=== PATIENT | male | born 1985 | race African-American/Black ===

== ENCOUNTER 2018-01-15 09:37 | Emergency (ER) | payer SELFPAY ==
[2018-01-15] MEDS ORDERED: ACETAMINOPHEN 500 MG TAB ONE (10:39)
[2018-01-15] MEDS ORDERED: KETOROLAC 30 MG/ML INJ ONE (10:39)
[2018-01-15] MEDS ORDERED: LIDOCAINE VISCOUS 2% SOLN 15 ML UDC ONE (10:40)
[2018-01-15] MEDS ORDERED: BUPIVACAINE 0.5% PF 10 ML VIAL ONE (12:02)
[2018-01-15] MEDS ORDERED: PROPOFOL 200 MG/20 ML VIAL IV ONE (12:14)
[2018-01-15 12:17] LABS: Urine Bacteria <20 /HPF (NONE SEEN); Urine RBC <5 /HPF (NONE SEEN)
[2018-01-15 12:18] LABS: Urine Culture Reflex Order REFLEXED
[2018-01-15] MEDS ORDERED: AZITHROMYCIN 250 MG TAB ONE (12:25)
[2018-01-15] MEDS ORDERED: CEFTRIAXONE/SWI 1gm 1 GM/10 ML SYR ONE (12:26)
[2018-01-15] MEDS ORDERED: NA CHLORIDE 0.9% 1,000 ML ONE (13:04)
[2018-01-15 13:10] LABS: Urine Blood TRACE (NEG); Urine Glucose NEGATIVE (NEG); Urine Protein NEGATIVE (NEG)
--- NOTE | 2018-01-15 13:54 | EDPHYS ---
Physician Documentation [facility] Name: Martinez Petty Age: 32 yrs Sex: Male : 1985 Arrival Date: 01/15/2018 Time: 09:45 Bed 3 Private MD: ED Physician Kurt Joshi HPI: 01/15 11:21 This 32 yrs old Black Male presents to ER via EMS with complaints of Penile Discharge. wa 11:21 The patient presents with a known STD exposure, with a history of engaging in sex with wa a single partner, swelling, of the head of penis, tenderness, of the head of penis, c/o cuts and bleeding of head of penis. inability to replace foreskin after having intercourse. began at 4 AM. Onset: The symptoms/episode began/occurred this morning. Modifying factors: The symptoms are alleviated by nothing, the symptoms are aggravated by touch and urination. Associated signs and symptoms: Pertinent negatives: abdominal pain, dysuria, fever, hematuria, nausea, vomiting. Severity of symptoms: At their worst the symptoms were moderate, in the emergency department the symptoms are unchanged. The patient has not experienced similar symptoms in the past. The patient has not recently seen a physician. none. Historical: - Allergies: 09:48 No Known Allergies; aa5 - Home Meds: 09:48 Enalapril Oral [Active]; Hydrochlorothiazide Oral [Active]; aa5 - PMHx: 09:48 Hypertension; aa5 - PSHx: 09:48 None; aa5 - Immunization history:: Adult Immunizations up to date. - Social history:: Smoking status: Patient uses tobacco products, denies chronic smoking, but will smoke occasionally. - Ebola Screening: : No symptoms or risks identified at this time. - Family history:: not pertinent. - Hospitalizations: : No recent hospitalization is reported. ROS: 11:23 Constitutional: Negative for fever, chills, and weight loss, Eyes: Negative for injury, wa pain, redness, and discharge, ENT: Negative for injury, pain, and discharge, Neck: Negative for injury, pain, and swelling, Cardiovascular: Negative for chest pain, palpitations, and edema, Respiratory: Negative for shortness of breath, cough, wheezing, and pleuritic chest pain, Abdomen/GI: Negative for abdominal pain, nausea, vomiting, diarrhea, and constipation, Back: Negative for injury and pain, MS/Extremity: Negative for injury and deformity, Skin: Negative for injury, rash, and discoloration, Neuro: Negative for headache, weakness, numbness, tingling, and seizure, Psych: Negative for depression, anxiety, suicide ideation, homicidal ideation, and hallucinations. 11:23 : Positive for penile discharge, penile pain, lesions. 11:23 All other systems are negative. Exam: 11:24 Constitutional: This is a well developed, well nourished patient who is awake, alert, wa and in no acute distress. Head/Face: Normocephalic, atraumatic. Eyes: Pupils equal round and reactive to light, extra-ocular motions intact. Lids and lashes normal. Conjunctiva and sclera are non-icteric and not injected. Cornea within normal limits. Periorbital areas with no swelling, redness, or edema. ENT: Nares patent. No nasal discharge, no septal abnormalities noted. Tympanic membranes are normal and external auditory canals are clear. Oropharynx with no redness, swelling, or masses, exudates, or evidence of obstruction, uvula midline. Mucous membranes moist. Neck: Trachea midline, no thyromegaly or masses palpated, and no cervical lymphadenopathy. Supple, full range of motion without nuchal rigidity, or vertebral point tenderness. No Meningismus. Chest/axilla: Normal chest wall appearance and motion. Nontender with no deformity. No lesions are appreciated. Cardiovascular: Regular rate and rhythm with a normal S1 and S2. No gallops, murmurs, or rubs. Normal PMI, no JVD. No pulse deficits. Respiratory: Lungs have equal breath sounds bilaterally, clear to auscultation and percussion. No rales, rhonchi or wheezes noted. No increased work of breathing, no retractions or nasal flaring. Abdomen/GI: Soft, non-tender, with normal bowel sounds. No distension or tympany. No guarding or rebound. No evidence of tenderness throughout. Back: No spinal tenderness. No costovertebral tenderness. Full range of motion. Skin: Warm, dry with normal turgor. Normal color with no rashes, no lesions, and no evidence of cellulitis. MS/ Extremity: Pulses equal, no cyanosis. Neurovascular intact. Full, normal range of motion. Neuro: Awake and alert, GCS 15, oriented to person, place, time, and situation. Cranial nerves II-XII grossly intact. Motor strength 5/5 in all extremities. Sensory grossly intact. Cerebellar exam normal. Normal gait. Psych: Awake, alert, with orientation to person, place and time. Behavior, mood, and affect are within normal limits. 11:24 : Male external genitalia: swelling: of the head of penis is noted, tenderness, ulceration, of the head of penis is present, noted erythema on head of penis. noted canker sore in groove. foreskin noted back. inability to replace. Vital Signs: 09:48 BP 134 / 96; Pulse 73; Resp 16 S; Temp 98.9(O); Pulse Ox 95% on R/A; Weight 99.79 kg aa5 (R); Height 6 ft. 3 in. (190.50 cm) (R); Pain 9/10; 11:33 BP 138 / 70; Pulse 59; Resp 16; Pulse Ox 100% on R/A; Pain 3/10; em 09:48 Body Mass Index 27.50 (99.79 kg, 190.50 cm) aa5 Procedures: 13:48 Moderate sedation: Pre-procedure assessment: the patient has been NPO 6 hour(s) prior wa to arrival, ASA physical classification: I - healthy, no underlying organic disease, Airway assessment: able to hyperextend neck, able to maintain airway, can open mouth without difficulty, Mallampati classification of tongue size: II - faucial pillars and soft palate can be visualized, but uvula is masked by the base of the tongue, Monitoring during procedure: bus driver/monitor, continuous pulse oximetry, nurse at bedside at all times, Medications employed: propofol bolus. high flow O2 pre-ox, 15 min prior to procedure, Post-procedure assessment: the patient is moderately sedated, Respiratory status: even and unlabored. Performed paraphimosis reduction: cleaned penile head with betadine. dorsal nerve block performed with bupivacaine. paraphimosis reduced with direct pressure. reduction achieved in about 2-3 minutes. no complications. MDM: 10:00 Patient medically screened. wa 11:26 Differential diagnosis: noted canker sore. consider syphilis, chancroid. consider wa GC/chlam. consider UTI. noted paraphimosis. will need replacement. consider topical anesthesia vs penile block. Data reviewed: vital signs, nurses notes. 13:56 Test interpretation: by ED physician or midlevel provider: UA noted for 5-10 wbc's with wa noted epithelial cells. RPR pending. Lab says has a 24 hour turn around time. Response to treatment: the patient's symptoms have markedly improved after treatment. 01/15 10:27 Order name: GC (GONORR/CHLAMYDIA) Probe nj 01/15 10:27 Order name: Urine Microscopic Only; Complete Time: 13:14 nj 01/15 10:30 Order name: Rpr nj 01/15 11:56 Order name: Urine Dipstick--Ancillary (enter results) 01/15 11:57 Order name: Urine Dipstick-Ancillary; Complete Time: 13:14 EDUT 01/15 12:19 Order name: Urine Culture [facility] 01/15 10:27 Order name: Urine Dipstick-Ancillary (obtain specimen); Complete Time: 12:26 nj 01/15 10:27 Order name: IV Start; Complete Time: 11:06 nj 01/15 12:05 Order name: Monitor; Complete Time: 12:11 nj 01/15 12:05 Order name: Oxygen Per Protocol; Complete Time: 12:25 nj Administered Medications: 11:15 Drug: Tylenol 1000 mg Route: PO; em 11:43 Follow up: Response: No adverse reaction; Pain is decreased em 11:29 Drug: TORadol 30 mg Route: IVP; Site: right antecubital; aa5 11:43 Follow up: Response: No adverse reaction; Pain is decreased em 11:55 CANCELLED (Physician Discretion): Bupivacaine-Epinephrine (0.5 %) 5 ml Infiltration nj once; to bedside 12:25 Drug: Rocephin - (cefTRIAXone) 1 grams {Note: administered IVP per pharmacy protocol at aa this time. .} Route: IVPB; Infused Over: 30 mins; Site: right antecubital; 12:27 Drug: Zithromax 1 grams Route: PO; aa5 14:00 Follow up: Response: No adverse reaction [facility] 12:58 Drug: Propofol 200 mg {Note: administered by Dr. Joshi during conscious sedation .} 5 Route: IVP; Site: right antecubital; 13:10 Follow up: Response: No adverse reaction [facility] 13:00 Drug: Bupivacaine-Epinephrine (0.5 %) 5 ml {Note: administered to penis by Dr. Adi wing during conscious sedation.} Route: Infiltration; 13:23 Not Given (Physician Discretion): Propofol 110 mg IVP once; to bedside for procedural aa5 sedation. 2 syringes of 110 mg 13:57 Drug: penicillin G Benzathine 2.4 million units Route: IM; Site: right gluteus; aa5 14:14 Follow up: Response: No adverse reaction aa5 Disposition: 01/15/18 13:54 Discharged to Home. Impression: Acute Paraphimosis, Penile discharge, Penile Ulcer, STI. - Condition is Stable. - Discharge Instructions: Sexually Transmitted Disease, [id number], Paraphimosis. - Work release form, Medication Reconciliation Form, Thank You Letter, Antibiotic Education, Prescription Opioid Use form. - Follow up: Adelita Presley MD; When: 2 - 3 days; Reason: Re-evaluation by your physician. - Problem is new. - Symptoms have improved. - Notes: you need to use condoms when having intercourse. follow up with the urologist as discussed for the foreskin of your penis to be examined. your sexual partners need checked for sexually trransmitted diseases Signatures: Dispatcher [employer] EDCelestine Escobedo, NAZ SANTANAN Kelly Glynn RN RN Kurt Abreu MD MD nj Corrections: (The following items were deleted from the chart) 11:55 11:54 Bupivacaine-Epinephrine (0.5 %) 5 ml Infiltration once; to bedside ordered. [facility] 14:14 13:54 01/15/2018 13:54 Discharged to Home. Impression: Acute Paraphimosis; Penile aa5 discharge; Penile Ulcer; STI. Condition is Stable. Forms are Medication Reconciliation Form, Thank You Letter, Antibiotic Education, Prescription Opioid Use. Follow up: Adelita Presley; When: 2 - 3 days; Reason: Re-evaluation by your physician. Problem is new. Symptoms have improved. margaret
--- NOTE | 2018-01-15 13:54 | ER ---
Nurse's Notes [facility] Name: Martinez Petty Age: 32 yrs Sex: Male : 1985 Arrival Date: 01/15/2018 Time: 09:45 Bed 3 Private MD: Diagnosis: Acute Paraphimosis;Penile discharge;Penile Ulcer;STI Presentation: 01/15 09:46 Presenting complaint: Patient states: penile bleeding and discharge that began today at aa5 0400. Pt denies burning with urination. Reports difficulty urinating. Transition of care: patient was not received from another setting of care. Onset of symptoms was January 15, 2018. Risk Assessment: Do you want to hurt yourself or someone else? Patient reports no desire to harm self or others. Initial Sepsis Screen: Does the patient meet any 2 criteria? No. Patient's initial sepsis screen is negative. Does the patient have a suspected source of infection? No. Patient's initial sepsis screen is negative. Care prior to arrival: None. 09:46 Method Of Arrival: EMS: [facility] aa5 09:46 Acuity: YESSICA 4 aa5 Historical: - Allergies: 09:48 No Known Allergies; aa5 - Home Meds: 09:48 Enalapril Oral [Active]; Hydrochlorothiazide Oral [Active]; aa5 - PMHx: 09:48 Hypertension; aa5 - PSHx: 09:48 None; aa5 - Immunization history:: Adult Immunizations up to date. - Social history:: Smoking status: Patient uses tobacco products, denies chronic smoking, but will smoke occasionally. - Ebola Screening: : No symptoms or risks identified at this time. - Family history:: not pertinent. - Hospitalizations: : No recent hospitalization is reported. Screenin:04 Abuse screen: Denies threats or abuse. Nutritional screening: No deficits noted. em Tuberculosis screening: No symptoms or risk factors identified. Fall Risk None identified. Assessment: 10:00 General: Appears in no apparent distress. uncomfortable, Behavior is calm, cooperative. em Pain: Complains of pain in head of penis and shaft of penis Pain currently is 9 out of 10 on a pain scale. Pain began 0400. Neuro: Level of Consciousness is awake, alert, obeys commands, Oriented to person, place, time, situation. Cardiovascular: Capillary refill < 3 seconds Patient's skin is warm and dry. Respiratory: Airway is patent Respiratory effort is even, unlabored, Respiratory pattern is regular, symmetrical. GI: Abdomen is flat. : Penile discharge is Blood noted on penis Reports penile discharge. Reports difficulty urinating Denies burning with urination, inability to void. EENT: No signs and/or symptoms were reported regarding the EENT system. Derm: Skin is intact, Skin is dry, Skin is normal, Skin temperature is warm. Musculoskeletal: Range of motion: intact in all extremities. 10:00 Reassessment: I agree with assessment completed by Celestine Cooney LVN. Foreskin aa5 retracted, mild bleeding noted to glans penis. Swelling noted to glans penis. . 11:19 Reassessment: Patient appears in no apparent distress at this time. Patient and/or em family updated on plan of care and expected duration. Pain level reassessed. Patient is alert, oriented x 3, equal unlabored respirations, skin warm/dry/pink. 12:10 Reassessment: Patient appears in no apparent distress at this time. Patient and/or em family updated on plan of care and expected duration. Pain level reassessed. Patient is alert, oriented x 3, equal unlabored respirations, skin warm/dry/pink. pt unable to tolerate penile block, consent form signed for conscious sedation. 13:15 Reassessment: Pt with eyes closed. Pt easy to arouse by verbal stimuli, A\T\ O x 4 at aa5 this time. Respirations even and unlabored, skin is normal/warm/dry. . 13:30 Reassessment: Pt sitting up in bed using his phone. . Neuro: Level of Consciousness is aa5 awake, alert, obeys commands, Oriented to person, place, time, situation. Cardiovascular: Rhythm is sinus rhythm. Respiratory: Airway is patent Respiratory effort is even, unlabored, Respiratory pattern is regular, symmetrical. Derm: Skin is dry, Skin is normal, Skin temperature is warm. 14:12 Neuro: Level of Consciousness is awake, alert, obeys commands, Oriented to person, aa5 place, time, situation. Respiratory: Airway is patent Respiratory effort is even, unlabored, Respiratory pattern is regular, symmetrical. Derm: Skin is dry, Skin is normal, Skin temperature is warm. Vital Signs: 09:48 BP 134 / 96; Pulse 73; Resp 16 S; Temp 98.9(O); Pulse Ox 95% on R/A; Weight 99.79 kg aa5 (R); Height 6 ft. 3 in. (190.50 cm) (R); Pain 9/10; 11:33 BP 138 / 70; Pulse 59; Resp 16; Pulse Ox 100% on R/A; Pain 3/10; em 09:48 Body Mass Index 27.50 (99.79 kg, 190.50 cm) [facility] ED Course: 09:45 Patient arrived in ED. aa5 09:46 Arm band placed on. aa5 09:47 Triage completed. aa5 09:51 Celestine Cooney LVN is Primary Nurse. em 10:00 Kurt Joshi MD is Attending Physician. wa 10:04 Patient has correct armband on for positive identification. Placed in gown. Bed in low em position. Call light in reach. 11:05 Initial lab(s) drawn, by dc, sent to lab. Inserted saline lock: 20 gauge in right [facility] antecubital area, using aseptic technique. Blood collected. 11:06 Rpr Sent. [facility] 12:58 Assist with conscious sedation, reduction of glans penis by manipulation by Dr. Joshi [facility] and LEROY Ramos. See conscious sedation flow sheet for further documentation. 13:52 Adelita Presley MD is Referral Physician. ar 14:12 IV discontinued, intact, bleeding controlled, No redness/swelling at site. Pressure [facility] dressing applied. Administered Medications: 11:15 Drug: Tylenol 1000 mg Route: PO; em 11:43 Follow up: Response: No adverse reaction; Pain is decreased em 11:29 Drug: TORadol 30 mg Route: IVP; Site: right antecubital; [facility] 11:43 Follow up: Response: No adverse reaction; Pain is decreased em 11:55 CANCELLED (Physician Discretion): Bupivacaine-Epinephrine (0.5 %) 5 ml Infiltration ar once; to bedside 12:25 Drug: Rocephin - (cefTRIAXone) 1 grams {Note: administered IVP per pharmacy protocol at [facility] this time. .} Route: IVPB; Infused Over: 30 mins; Site: right antecubital; 12:27 Drug: Zithromax 1 grams Route: PO; [facility] 14:00 Follow up: Response: No adverse reaction aa5 12:58 Drug: Propofol 200 mg {Note: administered by Dr. Joshi during conscious sedation .} aa5 Route: IVP; Site: right antecubital; 13:10 Follow up: Response: No adverse reaction aa5 13:00 Drug: Bupivacaine-Epinephrine (0.5 %) 5 ml {Note: administered to penis by Dr. Joshi aa5 during conscious sedation.} Route: Infiltration; 13:23 Not Given (Physician Discretion): Propofol 110 mg IVP once; to bedside for procedural aa5 sedation. 2 syringes of 110 mg 13:57 Drug: penicillin G Benzathine 2.4 million units Route: IM; Site: right gluteus; aa5 14:14 Follow up: Response: No adverse reaction aa5 Outcome: 13:54 Discharge ordered by . wa 14:12 Discharged to home ambulatory, with family. aa5 14:12 Condition: stable 14:12 Discharge instructions given to patient, Instructed on discharge instructions, follow up and referral plans. Demonstrated understanding of instructions, follow-up care. 14:14 Patient left the ED. aa5 Signatures: Celestine Cooney LVN LVN em Kelly Santacruz RN RN aa5 Myesha Woods 5 Kurt Joshi MD MD ar Corrections: (The following items were deleted from the chart) 11:44 10:00 : Penile discharge is Blood noted on penis Reports discharge, from penis that aa5 is inability to void, Denies burning with urination, em 13:37 13:15 Reassessment: Pt with eyes closed. Pt easy to arouse by verbal stimuli, A\T\ O x 4 aa5 at this time. Respirations even and unlabored, skin is normal/warm/dry. . aa5 13:40 10:00 Derm: Skin is intact, Skin is pink, warm \T\ dry. em aa5 13:40 10:00 Reassessment: I agree with assessment completed by Celestine Cooney LVN . aa5 aa5 14:00 12:25 Rocephin - (cefTRIAXone) 1 grams IVPB in right antecubital over 30 mins aa5 aa5
[2018-01-15] MEDS ORDERED: PEN G BENZ LA 2.4 MU/4 ML SYRINGE IM ONE (13:55)
[2018-01-17 04:07] LABS: RPR (Rapid Plasma Reagin) REACTIVE (NON-REACT)
[2018-01-18 21:03] LABS: C.trachomatis RNA,TMA Detected (Not Detected)
== END 2018-01-15 14:14 | disposition home or self-care (01) ==
LOC: ER 09:37
PROC: 0VNTXZZ Release Prepuce, External Approach (ICD-10-PCS; principal; 2018-01-15)
DX: N47.2 Paraphimosis (principal); N48.5 Ulcer of penis; A64 Unspecified sexually transmitted disease
CPT/HCPCS: 36415; 81003; 81015; 86592; 86593; 86780; 87086; 87088; 87490; 87590; 96372; 96374; 96375; 99285; J0561; J0696; J7030

== ENCOUNTER 2018-06-05 14:18 | Emergency (ER) | payer SELFPAY ==
--- OUTSIDE RECORDS SUMMARY | 2018-06-05 14:21 | XMS REPORT ---
:1985 [facility] [place] [address] [place] [id number] Care Team Providers Name Role Phone LINDA JALLOH Unavailable Unavailable Problems This patient has no known problems. Allergies, Adverse Reactions, Alerts This patient has no known allergies or adverse reactions. Medications This patient has no known medications. Results Test Description Test Time Test Comments Text Results Atomic Results Result Comments CREATINE KINASE (CK), TOTAL AND MB 2016-11-08 21:15:00 Test Item Value Reference Range Comments CREATINE KINASE TOTAL (BEAKER) (test pfrr=102) 158 U/L 29-200 CREATINE KINASE-MB (BEAKER) (test yrzy=901) 0.6 ng/mL 0.0-6.6 CREATINE KINASE-MB INDEX (BEAKER) (test gdzb=126) 0.4 % Effective 03/20/2014: CK-MB Reference Range ChangeNew: 0.0-6.6 Previous: 0.0- 4.9CK-MB Reference Range:<6.7 Normal6.7-10.0 Borderline>10.0 AbnormalTROPONIN [id number] 21:15:00 Test Item Value Reference Range Comments TROPONIN I (BEAKER) (test jdiw=439) < ng/mL 0.00-0.03 Effective 03/20/2014: Reference Range ChangeNew: 0.00-0.03 Previous 0.00- 0.15Troponin I (TnI) levels must be interpreted in the context of the presenting symptoms and the clinical findings. Elevated TnI levels indicate myocardial damage, but are not specific for ischemic heart disease. Elevated TnI levels are seen in patients with other cardiac conditions (including myocarditis and congestive heartfailure), and slight TnI elevations occur in patients with other conditions, including sepsis, renalfailure, acidosis, acute neurological disease, and persistent tachyarrhythmia.B-TYPE NATRIURETIC FACTOR ( BNP)2016-11-08 18:33:00 Test Item Value Reference Range Comments B-TYPE NATRIURETIC PEPTIDE (BEAKER) (test jlft=303) < pg/mL 0-100 CREATINE KINASE (CK), TOTAL AND [id number] 18:31:00 Test Item Value Reference Range Comments CREATINE KINASE TOTAL (BEAKER) (test rujz=028) 151 U/L 29-200 CREATINE KINASE-MB (BEAKER) (test hmmu=519) 0.7 ng/mL 0.0-6.6 CREATINE KINASE-MB INDEX (BEAKER) (test fqwq=711) 0.5 % Effective 03/20/2014: CK-MB Reference Range ChangeNew: 0.0-6.6 Previous: 0.0- 4.9CK-MB Reference Range:<6.7 Normal6.7-10.0 Borderline>10.0 AbnormalTROPONIN [id number] 18:31:00 Test Item Value Reference Range Comments TROPONIN I (BEAKER) (test xeay=284) < ng/mL 0.00-0.03 Effective 03/20/2014: Reference Range ChangeNew: 0.00-0.03 Previous 0.00- 0.15Troponin I (TnI) levels must be interpreted in the context of the presenting symptoms and the clinical findings. Elevated TnI levels indicate myocardial damage, but are not specific for ischemic heart disease. Elevated TnI levels are seen in patients with other cardiac conditions (including myocarditis and congestive heartfailure), and slight TnI elevations occur in patients with other conditions, including sepsis, renalfailure, acidosis, acute neurological disease, and persistent tachyarrhythmia.COMPREHENSIVE METABOLIC [id number] 18:27:00 Test Item Value Reference Range Comments TOTAL PROTEIN (BEAKER) 7.1 gm/dL 6.0-8.3 (test llxh=445) ALBUMIN (BEAKER) (test 4.0 g/dL 3.5-5.0 anjh=7291) ALKALINE PHOSPHATASE 45 U/L 40-150 (BEAKER) (test slng=732) BILIRUBIN TOTAL (BEAKER) 0.9 mg/dL 0.2-1.2 (test spxp=155) SODIUM (BEAKER) (test 141 meq/L 136-145 jtyj=960) POTASSIUM (BEAKER) (test 4.1 meq/L 3.5-5.1 cgwp=249) CHLORIDE (BEAKER) (test 106 meq/L 98-107 tbwo=201) CO2 (BEAKER) (test 25 meq/L 22-29 dlgv=495) BLOOD UREA NITROGEN 10 mg/dL 7-21 (BEAKER) (test yykr=355) CREATININE (BEAKER) (test 1.31 mg/dL 0.57-1.25 ydym=438) GLUCOSE RANDOM (BEAKER) 87 mg/dL 70-105 (test aeis=902) CALCIUM (BEAKER) (test 9.4 mg/dL 8.4-10.2 ppdo=887) AST (SGOT) (BEAKER) (test 17 U/L 5-34 cavw=518) ALT (SGPT) (BEAKER) (test 7 U/L 6-55 fenm=610) EGFR (BEAKER) (test mL/min/1.73 sq m INSUFFICIENT CLINICAL DATA uhbn=6816) TO CALCULATE ESTIMATED GFR. [id number] 18:24:00 Test Item Value Reference Range Comments MAGNESIUM (BEAKER) (test mrbo=176) 1.9 mg/dL 1.6-2.6 [id number] 18:16:00 Test Item Value Reference Range Comments PROTIME (BEAKER) (test miow=640) 13.8 seconds 11.7-14.7 INR (BEAKER) (test uyag=777) 1.1 <=5.9 PARTIAL THROMBOPLASTIN TIME (BEAKER) (test 28.6 seconds 22.5-36.0 aqqd=487) RECOMMENDED COUMADIN/WARFARIN INR THERAPY RANGESSTANDARD DOSE: 2.0 - 3.0 Includes: PROPHYLAXIS forvenous thrombosis, systemic embolization; TREATMENT for venous thrombosis and/or pulmonary embolus.HIGH RISK: Target INR is 2.5-3.5 for patients with mechanical heart valves.CBC W/PLT COUNT & AUTO [id number] 18:07:00 Test Item Value Reference Range Comments WHITE BLOOD CELL COUNT (BEAKER) (test bgtu=875) 4.7 K/ L 4.0-10.0 RED BLOOD CELL COUNT (BEAKER) (test uqzp=623) 5.23 M/ L 4.20-5.80 HEMOGLOBIN (BEAKER) (test muwr=380) 15.6 GM/DL 13.0-16.8 HEMATOCRIT (BEAKER) (test iymj=695) 47.4 % 40.0-50.0 MEAN CORPUSCULAR VOLUME (BEAKER) (test dmdu=090) 90.5 fL 82.0-98.0 MEAN CORPUSCULAR HEMOGLOBIN (BEAKER) (test 29.9 pg 27.0-33.0 lxsn=777) MEAN CORPUSCULAR HEMOGLOBIN CONC (BEAKER) (test 33.0 GM/DL 32.0-36.0 hovo=554) RED CELL DISTRIBUTION WIDTH (BEAKER) (test 12.5 % 10.3-14.2 xesm=381) PLATELET COUNT (BEAKER) (test lriv=855) 280 K/CU MM 150-430 MEAN PLATELET VOLUME (BEAKER) (test jytr=502) 6.6 fL 6.5-10.5 NUCLEATED RED BLOOD CELLS (BEAKER) (test 0 /100 WBC 0-0 dlja=550) NEUTROPHILS RELATIVE PERCENT (BEAKER) (test 62 % xnkk=592) LYMPHOCYTES RELATIVE PERCENT (BEAKER) (test 29 % frnd=712) MONOCYTES RELATIVE PERCENT (BEAKER) (test 5 % qbfx=381) EOSINOPHILS RELATIVE PERCENT (BEAKER) (test 3 % llxu=307) BASOPHILS RELATIVE PERCENT (BEAKER) (test 1 % ehpx=138) NEUTROPHILS ABSOLUTE COUNT (BEAKER) (test 2.90 K/ L 1.80-8.00 evwp=569) LYMPHOCYTES ABSOLUTE COUNT (BEAKER) (test 1.38 K/ L 1.48-4.50 infs=577) MONOCYTES ABSOLUTE COUNT (BEAKER) (test 0.23 K/ L 0.00-1.30 iccc=102) EOSINOPHILS ABSOLUTE COUNT (BEAKER) (test 0.15 K/ L 0.00-0.50 uecg=900) BASOPHILS ABSOLUTE COUNT (BEAKER) (test 0.05 K/ L 0.00-0.20 hpxv=403) 0.00
--- OUTSIDE RECORDS SUMMARY | 2018-06-05 14:21 | XMS REPORT | Clinical Summary ---
:1985 Author Organization [facility] Address [address] [place] [address] Care Team Providers Name Role Phone Gerardo Primary Care Provider Allergies No Known Allergies Medications Not on file Active Problems Not on file Social History Tobacco Use Types Packs/Day Years Used Date Current Some Day Smoker Cigarettes Alcohol Use Drinks/Week oz/Week Comments Yes rarely Sex Assigned at Date Recorded Not on file Job Start Date Occupation Industry Not on file Not on file Not on file Travel History Travel Start Travel End No recent travel history available. Last Filed Vital Signs Not on file Plan of Treatment Not on file Results Not on fileafter 06/04/2017
[2018-06-05] MEDS ORDERED: ONDANSETRON 4 MG/2 ML VIAL ONE (15:43)
[2018-06-05] MEDS ORDERED: PANTOPRAZOLE 40 MG INJ ONE (15:43)
[2018-06-05] MEDS ORDERED: NA CHLORIDE 0.9% 1,000 ML ONE (15:44)
[2018-06-05 16:08] LABS: Absolute Monocytes 0.3 K/uL (0.1-1.3); Basophils % 0.2 % (0-1.3); Eosinophils % 0.4 % (0-4.4); Hematocrit 42.9 % (39.6-49.0); MPV 8.5 fL (7.6-11.3); Monocytes % 4.8 % (3.3-12.3); RBC Red Blood Cell Count 4.88 M/uL (4.33-5.43)
[2018-06-05 16:40] LABS: Bilirubin Direct 0.2 mg/dL (0-0.2); Bilirubin Total 0.5 mg/dL (0.2-1.0); Magnesium 2.3 mg/dL (1.8-2.4); Potassium 4.2 mmol/L (3.5-5.1); Protein, Total 7.7 g/dL (6.4-8.2)
--- NOTE | 2018-06-05 17:45 | ER ---
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 Transition of care: patient was not received from another setting of care. Onset of symptoms was June 05, 2018 at 11:00. Risk Assessment: Do you want to hurt yourself or someone else? Patient reports no desire to harm self or others. Initial Sepsis Screen: Does the patient meet any 2 criteria? No. Patient's initial sepsis screen is negative. Does the patient have a suspected source of infection? No. Patient's initial sepsis screen is negative. Care prior to arrival: Medication(s) given: Phenergan, 12.5 mg. 14:29 Method Of Arrival: EMS: [facility] em 14:40 Acuity: YESSICA 3 iw Triage Assessment: 14:32 General: Appears in no apparent distress. comfortable, Behavior is calm, cooperative, em drowsy. Pain: Complains of pain in umbilical area Pain currently is 6 out of 10 on a pain scale. Neuro: Level of Consciousness is awake, alert, obeys commands, Oriented to person, place, time, situation. Historical: - Allergies: 14:32 No Known Allergies; em - PMHx: 14:32 Hypertension; em - PSHx: 14:32 None; em - Immunization history:: Adult Immunizations up to date. - Social history:: Smoking status: Patient uses tobacco products, smokes one-half pack cigarettes per day. - Ebola Screening: : Patient negative for fever greater than or equal to 101.5 degrees Fahrenheit, and additional compatible Ebola Virus Disease symptoms Patient denies exposure to infectious person Patient denies travel to an Ebola-affected area in the 21 days before illness onset No symptoms or risks identified at this time. Screenin:34 Abuse screen: Denies threats or abuse. Nutritional screening: No deficits noted. em Tuberculosis screening: No symptoms or risk factors identified. Fall Risk None identified. Assessment: 14:34 General: Appears in no apparent distress. comfortable, Behavior is cooperative, drowsy. em Pain: Complains of pain in abdomen Pain currently is 6 out of 10 on a pain scale. Pain began 4 hours ago. Neuro: Level of Consciousness is awake, alert, obeys commands, Oriented to person, place, time, situation. Cardiovascular: Patient's skin is warm and dry. Respiratory: Airway is patent Respiratory effort is even, unlabored, Respiratory pattern is regular, symmetrical. GI: Abdomen is flat, Bowel sounds present X 4 quads. Abd is soft and non tender X 4 quads. Reports nausea, vomiting. Derm: Skin is intact, is healthy with good turgor, Skin is pink, warm \T\ dry. Musculoskeletal: Range of motion: intact in all extremities. 15:00 Reassessment: Patient appears in no apparent distress at this time. i agree with above iw assessment by Celestine Cooney LVN. 15:30 Reassessment: Patient appears in no apparent distress at this time. Patient and/or em family updated on plan of care and expected duration. Pain level reassessed. Patient is alert, oriented x 3, equal unlabored respirations, skin warm/dry/pink. resting comfortably, pending lab results. 16:40 Reassessment: Patient appears in no apparent distress at this time. Patient and/or em family updated on plan of care and expected duration. Pain level reassessed. Patient is alert, oriented x 3, equal unlabored respirations, skin warm/dry/pink. pt eating hot cheetos in bed, instructed not to eat until diagnostic tests are complete Patient states feeling better. 18:28 Reassessment: Patient appears in no apparent distress at this time. Patient and/or em family updated on plan of care and expected duration. Pain level reassessed. Patient is alert, oriented x 3, equal unlabored respirations, skin warm/dry/pink. Patient denies pain at this time. Patient states feeling better. Patient states symptoms have improved. Vital Signs: 14:34 BP 159 / 105; Pulse 69; Resp 16; Temp 98.4(O); Pulse Ox 100% on R/A; Weight 97.52 kg; em Height 6 ft. 3 in. (190.50 cm); Pain 6/10; 15:51 BP 151 / 102; Pulse 64; Resp 18; Pulse Ox 99% on R/A; em 16:09 BP 122 / 75; Pulse 66; Resp 17; Pulse Ox 100% on R/A; mh5 17:00 BP 138 / 85; Pulse 68; Resp 18; Pulse Ox 100% on R/A; Pain 0/10; em 18:28 BP 131 / 87; Pulse 73; Resp 16; Temp 98.7(O); Pulse Ox 100% on R/A; Pain 0/10; em 14:34 Body Mass Index 26.87 (97.52 kg, 190.50 cm) em ED Course: 14:20 Patient arrived in ED. rg4 14:29 Celestine Cooney LVN is Primary Nurse. em 14:33 Maintain EMS IV. Dressing intact. Good blood return noted. Site clean \T\ dry. Gauge \T\ em site: 20 RAC. 14:34 Arm band placed on. em 14:34 Patient has correct armband on for positive identification. Bed in low position. Call em light in reach. Side rails up X2. Pulse ox on. NIBP on. 14:45 Dariel Quintero PA is PHCP. cp 14:45 Dariel Siddiqi MD is Attending Physician. cp 14:46 Triage completed. iw 15:26 Radiology exam delayed due to lab results not completed at this time. (BUN/Creatinine). mw3 17:40 XRAY Abdomen Acute Series In Process Unspecified. EDMS 18:27 No provider procedures requiring assistance completed. IV discontinued, intact, em bleeding controlled, No redness/swelling at site. Pressure dressing applied. Administered Medications: 15:40 Drug: Zofran 4 mg Route: IVP; Site: right antecubital; iw 16:59 Follow up: Response: No adverse reaction; Nausea is decreased em 15:40 Drug: ProTONIX 40 mg Route: IVP; Site: right antecubital; iw 16:59 Follow up: Response: No adverse reaction em 15:57 Drug: NS 0.9% 1000 ml Route: IV; Rate: 1 bolus; Site: right antecubital; iw 16:58 Follow up: IV Status: Completed infusion; IV Intake: 1000ml em Intake: 16:58 IV: 1000ml; Total: 1000ml. em Outcome: 17:45 Discharge ordered by . cp 18:27 Discharged to home ambulatory. em 18:27 Condition: good 18:27 Discharge instructions given to patient, Instructed on discharge instructions, follow up and referral plans. medication usage, Demonstrated understanding of instructions, follow-up care, medications, Prescriptions given X 2. 18:29 Patient left the ED. em Signatures: Dispatcher [employer] EDMS Celestine Cooney, [employer] em Ronda Gunderson RN RN Dariel Freedman PA PA Stephanie Newman 4 Myesha [facility] Snehal Geiger mw3 Corrections: (The following items were deleted from the chart) 15:26 15:26 Radiology exam delayed due to lab results not completed at this time. mw3 (BUN/Creatinine) IV insertion attempt and/or patient not having appropriate IV at this time. mw3
--- NOTE | 2018-06-05 17:45 | EDPHYS ---
Physician Documentation [facility] Name: Martinez Petty Age: 33 yrs Sex: Male : 1985 Arrival Date: 06/05/2018 Time: 14:20 Bed 20 Private MD: ED Physician Dariel Siddiqi HPI: 06/05 15:05 This 33 yrs old Black Male presents to ER via EMS with complaints of Abdominal Pain. cp 15:05 The patient presents with abdominal pain in the upper abdomen. Onset: The cp symptoms/episode began/occurred suddenly, today. The symptoms radiate to back. Associated signs and symptoms: Pertinent positives: nausea and vomiting. Severity of pain: in the emergency department the pain has improved mildly. Patient reports noticing blood in vomitus. Historical: - Allergies: 14:32 No Known Allergies; em - PMHx: 14:32 Hypertension; em - PSHx: 14:32 None; em - Immunization history:: Adult Immunizations up to date. - Social history:: Smoking status: Patient uses tobacco products, smokes one-half pack cigarettes per day. - Ebola Screening: : Patient negative for fever greater than or equal to 101.5 degrees Fahrenheit, and additional compatible Ebola Virus Disease symptoms Patient denies exposure to infectious person Patient denies travel to an Ebola-affected area in the 21 days before illness onset No symptoms or risks identified at this time. ROS: 15:10 Constitutional: Negative for body aches, chills, fever. cp 15:10 Eyes: Negative for injury, pain, redness, and discharge. cp 15:10 ENT: Negative for drainage from ear(s), ear pain, sore throat, difficulty swallowing, difficulty handling secretions. 15:10 Cardiovascular: Negative for chest pain, edema, palpitations. 15:10 Respiratory: Negative for cough, shortness of breath, wheezing. 15:10 Abdomen/GI: Positive for abdominal pain, nausea, vomiting, hematemesis, Negative for black/tarry stool, rectal bleeding. 15:10 Back: Negative for pain at rest, pain with movement, radiated pain. 15:10 : Negative for urinary symptoms, flank pain, testicular pain 15:10 Skin: Negative for cellulitis, rash. 15:10 Neuro: Negative for altered mental status, headache, weakness. 15:10 All other systems are negative. Exam: 15:15 Constitutional: The patient appears in no acute distress, alert, awake, cp non-diaphoretic, non-toxic, well developed, well nourished, uncomfortable. 15:15 Head/Face: Normocephalic, atraumatic. cp 15:15 Eyes: Periorbital structures: appear normal, Pupils: equal, round, and reactive to light and accomodation, Conjunctiva: normal, no exudate, no injection, Sclera: no appreciated abnormality, Lids and lashes: appear normal, bilaterally. 15:15 ENT: External ear(s): are unremarkable, Ear canal(s): are normal, clear, TM's: dullness, bilaterally, Nose: is normal, Mouth: Lips: moist, Oral mucosa: pink and intact, moist, Posterior pharynx: is normal, airway is patent, no erythema, no exudate, Voice: is normal. 15:15 Chest/axilla: Inspection: normal, Palpation: is normal, no crepitus, no tenderness. cp 15:15 Cardiovascular: Rate: normal, Rhythm: regular, JVD: is not appreciated. 15:15 Respiratory: the patient does not display signs of respiratory distress, Respirations: normal, no use of accessory muscles, no retractions, no splinting, no tachypnea, labored breathing, is not present, Breath sounds: are clear throughout, no decreased breath sounds, no stridor, no wheezing. 15:15 Abdomen/GI: Inspection: abdomen appears normal, Bowel sounds: active, all quadrants, Palpation: soft, in all quadrants, moderate abdominal tenderness, in the epigastric area, rebound tenderness, is not appreciated, involuntary guarding, is not appreciated. 15:15 Back: pain, is absent, ROM is normal. 15:15 Skin: cellulitis, is not appreciated, no rash present. 15:15 Neuro: Orientation: to person, place \T\ time. Mentation: is normal, Cerebellar function: is grossly normal, Motor: moves all fours, strength is normal, Sensation: is normal. Vital Signs: 14:34 BP 159 / 105; Pulse 69; Resp 16; Temp 98.4(O); Pulse Ox 100% on R/A; Weight 97.52 kg; em Height 6 ft. 3 in. (190.50 cm); Pain 6/10; 15:51 BP 151 / 102; Pulse 64; Resp 18; Pulse Ox 99% on R/A; em 16:09 BP 122 / 75; Pulse 66; Resp 17; Pulse Ox 100% on R/A; mh5 17:00 BP 138 / 85; Pulse 68; Resp 18; Pulse Ox 100% on R/A; Pain 0/10; em 18:28 BP 131 / 87; Pulse 73; Resp 16; Temp 98.7(O); Pulse Ox 100% on R/A; Pain 0/10; em 14:34 Body Mass Index 26.87 (97.52 kg, 190.50 cm) em MDM: 14:49 Patient medically screened. [facility] 17:45 Data reviewed: vital signs, nurses notes, lab test result(s), radiologic studies, plain cp films. 17:45 Counseling: I had a detailed discussion with the patient and/or guardian regarding: the cp historical points, exam findings, and any diagnostic results supporting the discharge/admit diagnosis, lab results, radiology results, to return to the emergency department if symptoms worsen or persist or if there are any questions or concerns that arise at home. Response to treatment: the patient's symptoms have markedly improved after treatment, Pain and nausea markedly improved. Vomiting resolved and patient requesting food, and as a result, I will discharge patient. 06/05 14:57 Order name: Basic Metabolic Panel; Complete Time: 16:44 cp 06/05 17:59 Interpretation: Normal except: CRE 1.32; GFR 77. cp 06/05 14:57 Order name: CBC with Diff; Complete Time: 16:44 cp 06/05 14:57 Order name: Creatinine for Radiology; Complete Time: 16:44 cp 06/05 14:57 Order name: Hepatic Function; Complete Time: 16:44 cp 06/05 14:57 Order name: Lipase; Complete Time: 16:44 cp 06/05 14:57 Order name: Magnesium; Complete Time: 16:44 cp 06/05 14:57 Order name: IV Saline Lock; Complete Time: 15:21 cp 06/05 14:57 Order name: Labs collected and sent; Complete Time: 18:22 cp 06/05 16:45 Order name: XRAY Abdomen Acute Series; Complete Time: 17:58 cp 06/05 16:48 Order name: Urine Dipstick--Ancillary (enter results) eb 06/05 14:57 Order name: Urine Dipstick-Ancillary (obtain specimen); Complete Time: 16:59 cp 06/05 17:44 Order name: PO challenge; Complete Time: 18:21 cp Administered Medications: 15:40 Drug: Zofran 4 mg Route: IVP; Site: right antecubital; iw 16:59 Follow up: Response: No adverse reaction; Nausea is decreased em 15:40 Drug: ProTONIX 40 mg Route: IVP; Site: right antecubital; iw 16:59 Follow up: Response: No adverse reaction em 15:57 Drug: NS 0.9% 1000 ml Route: IV; Rate: 1 bolus; Site: right antecubital; iw 16:58 Follow up: IV Status: Completed infusion; IV Intake: 1000ml em Disposition: 06/06 15:37 Co-signature as Attending Physician, Dariel Siddiqi MD I agree with the assessment and neil plan of care. Disposition: 06/05/18 17:45 Discharged to Home. Impression: Nausea and vomiting. - Condition is Stable. - Discharge Instructions: Nausea and Vomiting, Adult. - Prescriptions for Protonix 40 mg Oral Tablet, Delayed Release (E.C.) - take 1 tablet by ORAL route once daily for 7 days; 7 tablet. promethazine 25 mg Oral Tablet - take 1 tablet by ORAL route every 6 hours As needed; 20 tablet. - Medication Reconciliation Form, Thank You Letter, Antibiotic Education, Prescription Opioid Use form. - Follow up: Private Physician; When: 1 - 2 days; Reason: Recheck today's complaints. - Problem is new. - Symptoms have improved. Signatures: Dispatcher [employer] [facility] Dariel Siddiqi MD MD cha Munoz, Edgar, RN MOBILE RN MOBILE em Ronda Gunderson RN RN iw Page, Corey, PA PA cp Corrections: (The following items were deleted from the chart) 06/05 16:48 15:19 Abdomen Pelvis W Con+CT.RAD.BRZ ordered. [facility] 18:29 17:45 06/05/2018 17:45 Discharged to Home. Impression: Nausea and vomiting. Condition em is Stable. Forms are Medication Reconciliation Form, Thank You Letter, Antibiotic Education, Prescription Opioid Use. Follow up: Private Physician; When: 1 - 2 days; Reason: Recheck today's complaints. Problem is new. Symptoms have improved. cp
--- NOTE | 2018-06-05 17:54 | RAD REPORT ---
EXAM DESCRIPTION: RAD - Abdomen Acute Series - 06/05/2018 5:40 pm CLINICAL HISTORY: Vomiting, abdominal pain COMPARISON: None. FINDINGS: Lungs are clear. Heart size and vessels are normal. No pleural effusion, pneumothorax or o ther acute cardiopulmonary process seen. Bowel gas pattern is nonspecific. No bowel obstruction, free air or other acute findings. No suspicio us calcifications. Moderate stool is seen in the colon. No other suspicious for significant findings. IMPRESSION: Moderate stool in the colon.
[2018-06-05 20:35] LABS: Urine Blood NEGATIVE (NEG); Urine Glucose NEGATIVE (NEG); Urine Protein NEGATIVE (NEG); Urine pH 7.5 (5.0-7.0)
== END 2018-06-05 18:29 | disposition home or self-care (01) ==
LOC: ER 14:18
DX: R11.2 Nausea with vomiting, unspecified (principal); R10.9 Unspecified abdominal pain; F17.210 Nicotine dependence, cigarettes, uncomplicated
CPT/HCPCS: 36415; 74022; 80048; 80076; 81003; 83690; 83735; 85025; 96361; 96374; 96375; 99284; C9113; J2405; J7030

== ENCOUNTER 2018-07-13 12:39 | Emergency (ER) | payer SELFPAY ==
--- OUTSIDE RECORDS SUMMARY | 2018-07-13 12:44 | XMS REPORT | Clinical Summary ---
:1985 Author Organization [facility] Address [address] [place] [address] Care Team Providers Name Role Phone Gerardo [...] Not on file Results Not on fileafter 07/12/2017
--- OUTSIDE RECORDS SUMMARY | 2018-07-13 12:44 | XMS REPORT ---
:1985 Author Organization [facility] Address [facility] [place] [address] [place] [id number] Care Team Providers Name Role Phone LINDA [...] Range Comments CREATINE KINASE TOTAL (BEAKER) (test tytc=030) 158 U/L 29-200 CREATINE KINASE-MB (BEAKER) (test llew=016) 0.6 ng/mL 0.0-6.6 CREATINE KINASE-MB INDEX (BEAKER) (test yddf=446) 0.4 % Effective 03/20/2014: CK-MB Reference Range ChangeNew: 0.0-6.6 Previous: 0.0- 4.9CK-MB Reference Range:<6.7 Normal6.7-10.0 Borderline>10.0 AbnormalTROPONIN [id number] 21:15:00 Test Item Value Reference Range Comments TROPONIN I (BEAKER) (test itvm=407) < ng/mL 0.00-0.03 Effective 03/20/2014: Reference Range [...] Range Comments B-TYPE NATRIURETIC PEPTIDE (BEAKER) (test hrbt=799) < pg/mL 0-100 CREATINE KINASE (CK), TOTAL AND [id number] 18:31:00 Test Item Value Reference Range Comments CREATINE KINASE TOTAL (BEAKER) (test vdce=889) 151 U/L 29-200 CREATINE KINASE-MB (BEAKER) (test jzpa=775) 0.7 ng/mL 0.0-6.6 CREATINE KINASE-MB INDEX (BEAKER) (test vouw=116) 0.5 % Effective 03/20/2014: CK-MB Reference Range ChangeNew: 0.0-6.6 Previous: 0.0- 4.9CK-MB Reference Range:<6.7 Normal6.7-10.0 Borderline>10.0 AbnormalTROPONIN [id number] 18:31:00 Test Item Value Reference Range Comments TROPONIN I (BEAKER) (test hqmd=066) < ng/mL 0.00-0.03 Effective 03/20/2014: Reference Range [...] acute neurological disease, and persistent tachyarrhythmia.COMPREHENSIVE METABOLIC [id number] 18:27:00 Test Item Value Reference Range Comments TOTAL PROTEIN (BEAKER) 7.1 gm/dL 6.0-8.3 (test xaia=096) ALBUMIN (BEAKER) (test 4.0 g/dL 3.5-5.0 divd=6814) ALKALINE PHOSPHATASE 45 U/L 40-150 (BEAKER) (test mooh=159) BILIRUBIN TOTAL (BEAKER) 0.9 mg/dL 0.2-1.2 (test yioc=112) SODIUM (BEAKER) (test 141 meq/L 136-145 semw=845) POTASSIUM (BEAKER) (test 4.1 meq/L 3.5-5.1 nuvh=554) CHLORIDE (BEAKER) (test 106 meq/L 98-107 dlns=493) CO2 (BEAKER) (test 25 meq/L 22-29 gnjo=711) BLOOD UREA NITROGEN 10 mg/dL 7-21 (BEAKER) (test ojys=546) CREATININE (BEAKER) (test 1.31 mg/dL 0.57-1.25 sulo=994) GLUCOSE RANDOM (BEAKER) 87 mg/dL 70-105 (test tphm=480) CALCIUM (BEAKER) (test 9.4 mg/dL 8.4-10.2 nkcd=028) AST (SGOT) (BEAKER) (test 17 U/L 5-34 vply=563) ALT (SGPT) (BEAKER) (test 7 U/L 6-55 nhjk=934) EGFR (BEAKER) (test mL/min/1.73 sq m INSUFFICIENT CLINICAL DATA hrrf=7598) TO CALCULATE ESTIMATED GFR. [id number] 18:24:00 Test Item Value Reference Range Comments MAGNESIUM (BEAKER) (test lvob=154) 1.9 mg/dL 1.6-2.6 [id number] 18:16:00 Test Item Value Reference Range Comments PROTIME (BEAKER) (test qjps=879) 13.8 seconds 11.7-14.7 INR (BEAKER) (test ctit=269) 1.1 <=5.9 PARTIAL THROMBOPLASTIN TIME (BEAKER) (test 28.6 seconds 22.5-36.0 rkdq=170) RECOMMENDED COUMADIN/WARFARIN INR THERAPY RANGESSTANDARD DOSE: 2.0 - 3.0 Includes: PROPHYLAXIS forvenous thrombosis, systemic embolization; TREATMENT for venous thrombosis and/or pulmonary embolus.HIGH RISK: Target INR is 2.5-3.5 for patients with mechanical heart valves.CBC W/PLT COUNT & AUTO [id number] 18:07:00 Test Item Value Reference Range Comments WHITE BLOOD CELL COUNT (BEAKER) (test qjse=842) 4.7 K/ L 4.0-10.0 RED BLOOD CELL COUNT (BEAKER) (test vyti=331) 5.23 M/ L 4.20-5.80 HEMOGLOBIN (BEAKER) (test xpou=832) 15.6 GM/DL 13.0-16.8 HEMATOCRIT (BEAKER) (test ygcu=792) 47.4 % 40.0-50.0 MEAN CORPUSCULAR VOLUME (BEAKER) (test gmoo=067) 90.5 fL 82.0-98.0 MEAN CORPUSCULAR HEMOGLOBIN (BEAKER) (test 29.9 pg 27.0-33.0 pejp=278) MEAN CORPUSCULAR HEMOGLOBIN CONC (BEAKER) (test 33.0 GM/DL 32.0-36.0 isbi=005) RED CELL DISTRIBUTION WIDTH (BEAKER) (test 12.5 % 10.3-14.2 xlcj=547) PLATELET COUNT (BEAKER) (test wopd=868) 280 K/CU MM 150-430 MEAN PLATELET VOLUME (BEAKER) (test ybws=516) 6.6 fL 6.5-10.5 NUCLEATED RED BLOOD CELLS (BEAKER) (test 0 /100 WBC 0-0 vztf=409) NEUTROPHILS RELATIVE PERCENT (BEAKER) (test 62 % txut=722) LYMPHOCYTES RELATIVE PERCENT (BEAKER) (test 29 % ffiy=933) MONOCYTES RELATIVE PERCENT (BEAKER) (test 5 % cddt=240) EOSINOPHILS RELATIVE PERCENT (BEAKER) (test 3 % vrbv=143) BASOPHILS RELATIVE PERCENT (BEAKER) (test 1 % fdag=250) NEUTROPHILS ABSOLUTE COUNT (BEAKER) (test 2.90 K/ L 1.80-8.00 cqpj=065) LYMPHOCYTES ABSOLUTE COUNT (BEAKER) (test 1.38 K/ L 1.48-4.50 qniu=570) MONOCYTES ABSOLUTE COUNT (BEAKER) (test 0.23 K/ L 0.00-1.30 qzke=193) EOSINOPHILS ABSOLUTE COUNT (BEAKER) (test 0.15 K/ L 0.00-0.50 gbof=007) BASOPHILS ABSOLUTE COUNT (BEAKER) (test 0.05 K/ L 0.00-0.20 iwuw=465) 0.00
[2018-07-13 13:06] LABS: Absolute Lymphocytes (CBC) 1.6 K/uL (0.7-4.9); Absolute Monocytes 0.3 K/uL (0.1-1.3); Absolute Neutrophil 1.1 K/uL (1.8-8.0); Basophils % 0.9 % (0-1.3); Eosinophils % 3.6 % (0-4.4); Hematocrit 42.7 % (39.6-49.0); Lymphocytes % 51.3 % (15.3-44.8); MPV 8.8 fL (7.6-11.3); Monocytes % 8.8 % (3.3-12.3); RBC Red Blood Cell Count 4.86 M/uL (4.33-5.43)
[2018-07-13] MEDS ORDERED: KETOROLAC 30 MG/ML INJ ONE (13:07)
[2018-07-13] MEDS ORDERED: ONDANSETRON 4 MG/2 ML VIAL ONE (13:07)
[2018-07-13] MEDS ORDERED: NA CHLORIDE 0.9% 500 ML ONE (13:07)
[2018-07-13 13:19] LABS: Protime INR 1.07
[2018-07-13 13:23] LABS: ALT/SGPT 14 U/L (12-78); AST/SGOT 16 U/L (15-37); Albumin 3.6 g/dL (3.4-5.0); Alkaline Phosphatase 53 U/L (45-117); BUN Blood Urea Nitrogen 9 mg/dL (7-18); Bicarbonate 25 mmol/L (21-32); Bilirubin Direct 0.2 mg/dL (0-0.2); Bilirubin Total 0.5 mg/dL (0.2-1.0); Glucose Level 99 mg/dL (74-106); Magnesium 2.4 mg/dL (1.8-2.4); Potassium 3.7 mmol/L (3.5-5.1); Protein, Total 7.3 g/dL (6.4-8.2); Sodium Level 140 mmol/L (136-145); Troponin (Emerg Dept Use Only) < 0.02 ng/mL (0.0-0.045)
[2018-07-13 13:25] LABS: NT PRO-BNP < 5 pg/mL (<125)
--- NOTE | 2018-07-13 13:36 | RAD REPORT ---
EXAM DESCRIPTION: RAD - Chest Single View - 07/13/2018 1:28 pm CLINICAL HISTORY: CHEST PAIN Chest pain. COMPARISON: Abdomen Acute Series dated 06/05/2018; CHEST SINGLE VIEW dated 09/15/2009 FINDINGS: Portable technique limits examination quality. The lungs are grossly clear. The heart is normal in size. No displaced fractures. IMPRESSION: No acute intrathoracic process suspected.
[2018-07-13] MEDS ORDERED: MAGNE/ALUM HYDROXD 30 ML UCUP ONE (14:29)
[2018-07-13] MEDS ORDERED: LIDOCAINE VISCOUS 2% SOLN 15 ML UDC ONE (14:29)
[2018-07-13 15:00] LABS: Blood Morphology Comment NOT SEEN (NOT SEEN); Platelet Estimate ADEQ
--- NOTE | 2018-07-13 16:59 | ER ---
Nurse's Notes [facility] Name: Martinez Petty Age: 33 yrs Sex: Male : 1985 Arrival Date: 07/13/2018 Time: 12:36 Bed 8 Private MD: Diagnosis: Chest pain, unspecified;Hypertensive heart disease Presentation: 07/13 12:35 Presenting complaint: EMS states: chest pain that started at 1200 today, no diaphoresis sv reported. 18G L AC, BP 160/90 HR-100 BS-115, EKG-SR, ASA 324 mg PO given. Transition of care: patient was not received from another setting of care. Onset of symptoms was July 13, 2018 at 12:00. Care prior to arrival: IV initiated. 18 GA, in the left antecubital area, Glucose check: 115. 12:35 Method Of Arrival: EMS: [facility] sv 12:40 Presenting complaint: Patient states: midsternal chest pain , denies SOB, dizziness. sv Risk Assessment: Do you want to hurt yourself or someone else? Patient reports no desire to harm self or others. Initial Sepsis Screen: Does the patient meet any 2 criteria? No. Patient's initial sepsis screen is negative. Does the patient have a suspected source of infection? No. Patient's initial sepsis screen is negative. 12:57 Acuity: YESSICA 3 dm5 Triage Assessment: 12:40 General: Appears uncomfortable, well developed, Behavior is cooperative, appropriate sv for age, anxious, Smells of body odor. Pain: Complains of pain in mid-sternal area Pain currently is 8 out of 10 on a pain scale. Pain began 1 hour ago. Is continuous, Aggravated by "breathing in" Noted to be grimacing, restless. Neuro: Level of Consciousness is awake, alert, obeys commands, Oriented to person, place, time, situation, Moves all extremities. Full function Gait is steady, Speech is normal. Cardiovascular: Patient's skin is warm and dry. Pulses are 3+ in right radial artery and left radial artery Rhythm is sinus rhythm. Respiratory: Airway is patent Respiratory effort is even, unlabored, Respiratory pattern is regular, symmetrical. Derm: Skin is pink, warm \\T\\ dry. normal. Musculoskeletal: Range of motion: intact in all extremities. Historical: - Allergies: 13:06 No Known Allergies; sv - PMHx: 13:06 Hypertension; sv - PSHx: 13:06 None; sv - Immunization history:: Adult Immunizations up to date, Flu vaccine is not up to date. - Social history:: Smoking status: Patient uses tobacco products, denies chronic smoking, but will smoke occasionally, Patient uses alcohol, on a daily basis. - Ebola Screening: : No symptoms or risks identified at this time. Screenin:09 Abuse screen: Denies threats or abuse. Denies injuries from another. Nutritional sv screening: No deficits noted. Tuberculosis screening: No symptoms or risk factors identified. Fall Risk None identified. Assessment: 13:09 Reassessment: Patient appears in no apparent distress at this time. No changes from sv previously documented assessment. Patient and/or family updated on plan of care and expected duration. Pain level reassessed. Patient is alert, oriented x 3, equal unlabored respirations, skin warm/dry/pink. 13:57 Reassessment: Patient appears in no apparent distress at this time. Patient and/or sv family updated on plan of care and expected duration. Pain level reassessed. Patient is alert, oriented x 3, equal unlabored respirations, skin warm/dry/pink. 14:15 Reassessment: Pt c/o chest burning, rates pain a 8/10 on a pain scale. PA notified and aa5 GI cocktail was ordered. . 15:50 Reassessment: Patient appears in no apparent distress at this time. No changes from sv previously documented assessment. Patient and/or family updated on plan of care and expected duration. Pain level reassessed. Patient is alert, oriented x 3, equal unlabored respirations, skin warm/dry/pink. 17:11 Reassessment: Patient appears in no apparent distress at this time. Patient and/or sv family updated on plan of care and expected duration. Pain level reassessed. Patient is alert, oriented x 3, equal unlabored respirations, skin warm/dry/pink. Patient states feeling better. Patient states symptoms have improved. Vital Signs: 12:35 BP 141 / 96; Pulse 81; Resp 20; Temp 98.7; Pulse Ox 100% ; Weight 99.79 kg; Height 6 sv ft. 4 in. (193.04 cm); Pain 8/10; 13:57 BP 144 / 97; Pulse 80; Resp 20; Pulse Ox 96% ; sv 14:58 BP 140 / 90; Pulse 66; Resp 15; Pulse Ox 100% ; sv 15:49 BP 151 / 98; Pulse 90; Resp 22; Pulse Ox 100% ; sv 12:35 Body Mass Index 26.78 (99.79 kg, 193.04 cm) sv ED Course: 12:35 Maintain EMS IV. Dressing intact. Good blood return noted. Site clean \\T\\ dry. Gauge \\T\\ sv site: 18G L AC. 12:35 Patient maintains SpO2 saturation greater than 95% on room air. sv 12:36 Patient arrived in ED. sv 12:40 Arm band placed on. sv 12:40 Patient has correct armband on for positive identification. Placed in gown. Bed in low sv position. Call light in reach. Side rails up X2. athletic monitor on. Pulse ox on. NIBP on. Door closed. Head of bed elevated. 12:41 Dariel Quintero PA is PHCP. cp 12:41 Dariel Siddiqi MD is Attending Physician. cp 12:49 EKG done, by cmm technician. reviewed by Dariel HARPER. sm3 12:56 Initial lab(s) drawn, by me, sent to lab. jb1 12:57 Triage completed. dm5 13:02 Edie Piper, RN is Primary Nurse. sv 13:13 Manual Differential Sent. sv 13:29 XRAY Chest (1 view) In Process Unspecified. EDMS 16:05 EKG done, by cmm technician. reviewed by Dariel HARPER. sm3 16:23 Repeat lab(s) drawn. by laborer tanbark, sent to lab. sv 17:11 No provider procedures requiring assistance completed. IV discontinued, intact, sv bleeding controlled, No redness/swelling at site. Pressure dressing applied. Administered Medications: 13:00 Drug: Zofran 4 mg Route: IVP; Site: left antecubital; sv 13:30 Follow up: Response: No adverse reaction sv 13:02 Drug: NS 0.9% 500 ml Route: IV; Rate: bolus; Site: left antecubital; sv 13:30 Follow up: Response: No adverse reaction; IV Status: Completed infusion; IV Intake: sv 500ml 13:03 Drug: TORadol 30 mg Route: IVP; Site: left antecubital; sv 13:30 Follow up: Response: No adverse reaction; No change in condition sv 14:17 Drug: GI Cocktail without - (Maalox Suspension 30 ml, Lidocaine Liquid 2 % 15 aa5 ml) Route: PO; 14:30 Follow up: Response: No adverse reaction sv 17:11 Not Given (Patient Refused): NS 0.9% 1000 ml IV at 125 ml/hr continuous sv Intake: 13:30 IV: 500ml; Total: 500ml. sv Outcome: 16:58 Discharge ordered by MD. nelda 17:11 Discharged to home ambulatory, with family. sv 17:11 Condition: stable 17:11 Discharge instructions given to patient, Instructed on discharge instructions, follow up and referral plans. medication usage, Demonstrated understanding of instructions, follow-up care, medications, Prescriptions given X 4. 17:11 Patient left the ED. sv Signatures: Dispatcher [employer] Tom Hernandez jb1 Alena Mcclellan RN RN dm5 Edie Piper RN RN Kelly Gaspar RN RN aa5 Dariel Quintero PA PA cp Montes, Shakira 3
--- NOTE | 2018-07-13 16:59 | EDPHYS ---
Physician Documentation [facility] Name: Martinez Petty Age: 33 yrs Sex: Male : 1985 Arrival Date: 07/13/2018 Time: 12:36 Bed 8 Private MD: ED Physician Dariel Siddiqi HPI: 07/13 12:45 This 33 yrs old Black Male presents to ER via EMS with complaints of Chest Pain. cp 12:45 The patient or guardian reports chest pain that is located primarily in the substernal cp area, epigastric area. The pain does not radiate. Associated signs and symptoms: Pertinent negatives: cough, diaphoresis, lower extremity pain, lower extremity swelling, palpitations, shortness of breath, vomiting. The chest pain is described as sharp. Duration: The patient or guardian reports a single episode, that is still ongoing, and unchanged. 12:45 Modifying factors: the symptoms are aggravated by palpation of area. EMS care prior to cp arrival includes: aspirin. Historical: - Allergies: 13:06 No Known Allergies; sv - PMHx: 13:06 Hypertension; sv - PSHx: 13:06 None; sv - Immunization history:: Adult Immunizations up to date, Flu vaccine is not up to date. - Social history:: Smoking status: Patient uses tobacco products, denies chronic smoking, but will smoke occasionally, Patient uses alcohol, on a daily basis. - Ebola Screening: : No symptoms or risks identified at this time. ROS: 12:50 Constitutional: Negative for body aches, chills, fever, poor PO intake. cp 12:50 Eyes: Negative for injury, pain, redness, and discharge. cp 12:50 ENT: Negative for drainage from ear(s), ear pain, sore throat, difficulty swallowing, difficulty handling secretions. 12:50 Neck: Negative for pain with movement, pain at rest, stiffness, tenderness. 12:50 Cardiovascular: Positive for chest pain, Negative for edema, palpitations. 12:50 Respiratory: Negative for cough, shortness of breath, wheezing. 12:50 Abdomen/GI: Negative for vomiting, diarrhea, constipation, black/tarry stool, rectal bleeding. 12:50 Back: Negative for pain at rest, pain with movement, radiated pain. 12:50 : Negative for urinary symptoms, testicular pain 12:50 Skin: Negative for cellulitis, rash. 12:50 Neuro: Negative for altered mental status, headache, numbness, syncope, weakness. 12:50 All other systems are negative. Exam: 12:45 ECG was reviewed by the Attending Physician. cp 12:55 Constitutional: The patient appears in no acute distress, alert, awake, cp non-diaphoretic, non-toxic, well developed, well nourished, uncomfortable. 12:55 Head/Face: Normocephalic, atraumatic. cp 12:55 Eyes: Pupils equal round and reactive to light, extra-ocular motions intact. Lids and lashes normal. Conjunctiva and sclera are non-icteric and not injected. Cornea within normal limits. Periorbital areas with no swelling, redness, or edema. ENT: Nares patent. No nasal discharge, no septal abnormalities noted. Tympanic membranes are normal and external auditory canals are clear. Oropharynx with no redness, swelling, or masses, exudates, or evidence of obstruction, uvula midline. Mucous membranes moist. 12:55 Chest/axilla: Inspection: normal, Palpation: crepitus, is not appreciated, tenderness, that is moderate, of the anterior aspect of right upper chest, anterior aspect of left upper chest and mid-sternal area, that partially reproduces the patient's complaints. 12:55 Cardiovascular: Rate: normal, Rhythm: regular, Pulses: Pulses are 2+ in right radial artery and left radial artery. Heart sounds: murmur, not appreciated, rub, not appreciated, gallop, not appreciated, Edema: is not appreciated, JVD: is not appreciated. 12:55 Respiratory: the patient does not display signs of respiratory distress, Respirations: normal, no use of accessory muscles, no retractions, no splinting, no tachypnea, labored breathing, is not present, Breath sounds: are clear throughout, no decreased breath sounds, no stridor, no wheezing. 12:55 Abdomen/GI: Inspection: abdomen appears normal, Bowel sounds: active, all quadrants, Palpation: soft, in all quadrants, moderate abdominal tenderness, in the epigastric area. 12:55 Back: pain, is absent, ROM is normal. 12:55 Skin: cellulitis, is not appreciated, no rash present. 12:55 Neuro: Orientation: to person, place \T\ time. Mentation: is normal, Cerebellar function: is grossly normal, Motor: moves all fours, strength is normal, Sensation: is normal. 16:05 ECG was reviewed by the Attending Physician. cp Vital Signs: 12:35 BP 141 / 96; Pulse 81; Resp 20; Temp 98.7; Pulse Ox 100% ; Weight 99.79 kg; Height 6 sv ft. 4 in. (193.04 cm); Pain 8/10; 13:57 BP 144 / 97; Pulse 80; Resp 20; Pulse Ox 96% ; sv 14:58 BP 140 / 90; Pulse 66; Resp 15; Pulse Ox 100% ; sv 15:49 BP 151 / 98; Pulse 90; Resp 22; Pulse Ox 100% ; sv 12:35 Body Mass Index 26.78 (99.79 kg, 193.04 cm) sv MDM: 12:43 Patient medically screened. cp 13:00 Differential diagnosis: abnormal EKG, chest wall pain, cholecystitis, Cholelithiasis cp costochondritis, esophagitis, gastritis, myocarditis, pancreatitis, pericarditis, pleurisy, pneumonia, pneumothorax, pulmonary embolus, stable angina, thoracic aortic disection, unstable angina. 16:58 Data reviewed: vital signs, nurses notes, lab test result(s), EKG, radiologic studies, cp plain films. 16:58 Test interpretation: by ED physician or midlevel provider: ECG, plain radiologic cp studies. Counseling: I had a detailed discussion with the patient and/or guardian regarding: the historical points, exam findings, and any diagnostic results supporting the discharge/admit diagnosis, lab results, radiology results, the need for outpatient follow up, a family practitioner, to return to the emergency department if symptoms worsen or persist or if there are any questions or concerns that arise at home. Response to treatment: the patient's symptoms have markedly improved after treatment, and as a result, I will discharge patient. Special discussion: Based on the patient's history, exam, and Dx evaluation, there is no indication for emergent intervention or inpatient Tx. It is understood by the patient/guardian that if the Sx's persist or worsen they need to return immediately for re-evaluation. 07/13 12:37 Order name: Basic Metabolic Panel; Complete Time: 13:42 sv 07/13 12:37 Order name: CBC with Diff; Complete Time: 16:48 sv 07/13 12:37 Order name: LFT's; Complete Time: 13:42 sv 07/13 12:37 Order name: Magnesium; Complete Time: 13:42 sv 07/13 12:37 Order name: NT PRO-BNP; Complete Time: 13:42 sv 07/13 12:37 Order name: PT-INR; Complete Time: 13:42 sv 07/13 12:37 Order name: Troponin (emerg Dept Use Only); Complete Time: 13:42 sv 07/13 12:37 Order name: XRAY Chest (1 view); Complete Time: 13:42 sv 07/13 13:11 Order name: Manual Differential; Complete Time: 16:48 EDMS 07/13 15:51 Order name: Troponin (emerg Dept Use Only); Complete Time: 16:57 sv 07/13 12:37 Order name: EKG; Complete Time: 12:40 sv 07/13 12:37 Order name: Cardiac monitoring; Complete Time: 12:57 sv 07/13 12:37 Order name: EKG - Nurse/Tech; Complete Time: 12:57 sv 07/13 12:37 Order name: IV Saline Lock; Complete Time: 12:57 sv 07/13 12:37 Order name: Labs collected and sent; Complete Time: 12:57 sv 07/13 12:37 Order name: O2 Per Protocol; Complete Time: 12:57 sv 07/13 12:37 Order name: O2 Sat Monitoring; Complete Time: 12:57 sv 07/13 15:51 Order name: EKG; Complete Time: 15:51 sv 07/13 15:51 Order name: EKG - Nurse/Tech; Complete Time: 16:13 sv EC:45 Rate is 85 beats/min. Rhythm is regular. ID interval is normal. QRS interval is normal. cp QT interval is normal. T waves are Inverted in lead aVL. Interpreted by me. Reviewed by me. 16:05 Rate is 73 beats/min. Rhythm is regular. ID interval is normal. QRS interval is normal. cp QT interval is normal. Interpreted by me. Reviewed by me. Administered Medications: 13:00 Drug: Zofran 4 mg Route: IVP; Site: left antecubital; sv 13:30 Follow up: Response: No adverse reaction sv 13:02 Drug: NS 0.9% 500 ml Route: IV; Rate: bolus; Site: left antecubital; sv 13:30 Follow up: Response: No adverse reaction; IV Status: Completed infusion; IV Intake: sv 500ml 13:03 Drug: TORadol 30 mg Route: IVP; Site: left antecubital; sv 13:30 Follow up: Response: No adverse reaction; No change in condition sv 14:17 Drug: GI Cocktail without - (Maalox Suspension 30 ml, Lidocaine Liquid 2 % 15 aa5 ml) Route: PO; 14:30 Follow up: Response: No adverse reaction sv 17:11 Not Given (Patient Refused): NS 0.9% 1000 ml IV at 125 ml/hr continuous sv Disposition: 07/14 07:46 Co-signature as Attending Physician, Dariel Siddiqi MD I agree with the assessment and neil plan of care. Disposition: 07/13/18 16:58 Discharged to Home. Impression: Chest pain, unspecified, Hypertensive heart disease. - Condition is Stable. - Discharge Instructions: Nonspecific Chest Pain, How to Take Your Blood Pressure, [id number], Aspirin and Your Heart, Managing Your Hypertension. - Prescriptions for Ibuprofen 800 mg Oral Tablet - take 1 tablet by ORAL route every 8 hours As needed take with food; 30 tablet. Protonix 40 mg Oral Tablet - take 1 tablet by ORAL route once daily; 30 tablet. Metoprolol Tartrate 25 mg Oral Tablet - take 1 tablet by ORAL route 2 times per day with a meal; 30 tablet. Enalapril- Hydrochlorothiazide 5-12.5 mg Oral Tablet - take 1 tablet by ORAL route once daily; 30 tablet. - Work release form, Medication Reconciliation Form, Thank You Letter, Antibiotic Education, Prescription Opioid Use form. - Follow up: Private Physician; When: 2 - 3 days; Reason: Recheck today's complaints. Signatures: Dispatcher [employer] Edie Cárdenas RN RN sv Anderson, Corey, MD MD cha Calderon, Audri RN RN aa5 Dariel Quintero PA PA cp Corrections: (The following items were deleted from the chart) 07/13 17:00 16:58 07/13/2018 16:58 Discharged to Home. Impression: Chest pain, unspecified. cp Condition is Stable. Forms are Medication Reconciliation Form, Thank You Letter, Antibiotic Education, Prescription Opioid Use. Follow up: Private Physician; When: 2 - 3 days; Reason: Recheck today's complaints. cp 17:11 17:00 07/13/2018 16:58 Discharged to Home. Impression: Chest pain, unspecified; sv Hypertensive heart disease. Condition is Stable. Discharge Instructions: Nonspecific Chest Pain, Aspirin and Your Heart. Prescriptions for Ibuprofen 800 mg Oral Tablet - take 1 tablet by ORAL route every 8 hours As needed take with food; 30 tablet, Protonix 40 mg Oral Tablet - take 1 tablet by ORAL route once daily; 30 tablet. and Forms are Medication Reconciliation Form, Thank You Letter, Antibiotic Education, Prescription Opioid Use. Follow up: Private Physician; When: 2 - 3 days; Reason: Recheck today's complaints. cp
--- NOTE | 2018-07-14 10:33 | EKG ---
Test Date: 2018-07-13 Test Time: 15:58:40 Bdc Manager: POOL MEASUREMENT RESULTS: Intervals: Rate: 73 WY: 148 QRSD: 98 QT: 366 QTc: 403 [place]: P: 33 WY: 148 QRS: 67 T: 22 INTERPRETIVE STATEMENTS: Normal sinus rhythm Normal ECG Compared to ECG 09/27/2009 08:19:24 Sinus tachycardia no longer present Electronically Signed On 07-13-18 17:45:34 CDT by Demario Srinivasan
--- NOTE | 2018-07-14 10:34 | EKG ---
Test Date: 2018-07-13 Test Time: 12:35:25 Valve Steamer: POOL MEASUREMENT RESULTS: Intervals: Rate: 85 MD: 136 QRSD: 94 QT: 346 QTc: 411 [place]: P: 46 MD: 136 QRS: 65 T: 59 INTERPRETIVE STATEMENTS: Sinus rhythm with marked sinus arrhythmia Nonspecific T wave abnormality Abnormal ECG Compared to ECG 09/27/2009 08:19:24 T-wave abnormality now present Sinus tachycardia no longer present Electronically Signed On 07-13-18 17:48:17 CDT by Demario Srinivasan
== END 2018-07-13 17:11 | disposition home or self-care (01) ==
LOC: ER 12:39
DX: I11.9 Hypertensive heart disease without heart failure (principal)
CPT/HCPCS: 36415; 71045; 80048; 80076; 83735; 83880; 84484; 85025; 85610; 93005; 96374; 96375; 99285; J2405

== ENCOUNTER 2018-08-05 16:03 | Emergency (ER) | payer SELFPAY ==
--- OUTSIDE RECORDS SUMMARY | 2018-08-05 16:14 | XMS REPORT ---
:1985 [facility] [place] [address] [place] [id number] Care Team Providers Name Role Phone LINDA [...] Range Comments CREATINE KINASE TOTAL (BEAKER) (test mdfu=371) 158 U/L 29-200 CREATINE KINASE-MB (BEAKER) (test ushn=534) 0.6 ng/mL 0.0-6.6 CREATINE KINASE-MB INDEX (BEAKER) (test udtm=641) 0.4 % Effective 03/20/2014: CK-MB Reference Range ChangeNew: 0.0-6.6 Previous: 0.0- 4.9CK-MB Reference Range:<6.7 Normal6.7-10.0 Borderline>10.0 AbnormalTROPONIN [id number] 21:15:00 Test Item Value Reference Range Comments TROPONIN I (BEAKER) (test icby=096) < ng/mL 0.00-0.03 Effective 03/20/2014: Reference Range [...] Range Comments B-TYPE NATRIURETIC PEPTIDE (BEAKER) (test zkxy=447) < pg/mL 0-100 CREATINE KINASE (CK), TOTAL AND [id number] 18:31:00 Test Item Value Reference Range Comments CREATINE KINASE TOTAL (BEAKER) (test otlc=120) 151 U/L 29-200 CREATINE KINASE-MB (BEAKER) (test ealz=817) 0.7 ng/mL 0.0-6.6 CREATINE KINASE-MB INDEX (BEAKER) (test rawu=916) 0.5 % Effective 03/20/2014: CK-MB Reference Range ChangeNew: 0.0-6.6 Previous: 0.0- 4.9CK-MB Reference Range:<6.7 Normal6.7-10.0 Borderline>10.0 AbnormalTROPONIN [id number] 18:31:00 Test Item Value Reference Range Comments TROPONIN I (BEAKER) (test bvfn=992) < ng/mL 0.00-0.03 Effective 03/20/2014: Reference Range [...] acute neurological disease, and persistent tachyarrhythmia.COMPREHENSIVE METABOLIC [id number] 18:27:00 Test Item Value Reference Range Comments TOTAL PROTEIN (BEAKER) 7.1 gm/dL 6.0-8.3 (test nalo=169) ALBUMIN (BEAKER) (test 4.0 g/dL 3.5-5.0 tyuz=6311) ALKALINE PHOSPHATASE 45 U/L 40-150 (BEAKER) (test ejfu=174) BILIRUBIN TOTAL (BEAKER) 0.9 mg/dL 0.2-1.2 (test qyfv=186) SODIUM (BEAKER) (test 141 meq/L 136-145 uiln=642) POTASSIUM (BEAKER) (test 4.1 meq/L 3.5-5.1 khxx=844) CHLORIDE (BEAKER) (test 106 meq/L 98-107 sthe=592) CO2 (BEAKER) (test 25 meq/L 22-29 xdvu=088) BLOOD UREA NITROGEN 10 mg/dL 7-21 (BEAKER) (test szyv=051) CREATININE (BEAKER) (test 1.31 mg/dL 0.57-1.25 bmqy=940) GLUCOSE RANDOM (BEAKER) 87 mg/dL 70-105 (test edue=021) CALCIUM (BEAKER) (test 9.4 mg/dL 8.4-10.2 upsg=636) AST (SGOT) (BEAKER) (test 17 U/L 5-34 afzt=936) ALT (SGPT) (BEAKER) (test 7 U/L 6-55 xavq=823) EGFR (BEAKER) (test mL/min/1.73 sq m INSUFFICIENT CLINICAL DATA tvfz=5363) TO CALCULATE ESTIMATED GFR. [id number] 18:24:00 Test Item Value Reference Range Comments MAGNESIUM (BEAKER) (test npal=730) 1.9 mg/dL 1.6-2.6 [id number] 18:16:00 Test Item Value Reference Range Comments PROTIME (BEAKER) (test rons=335) 13.8 seconds 11.7-14.7 INR (BEAKER) (test ewmh=951) 1.1 <=5.9 PARTIAL THROMBOPLASTIN TIME (BEAKER) (test 28.6 seconds 22.5-36.0 yvzo=150) RECOMMENDED COUMADIN/WARFARIN INR THERAPY RANGESSTANDARD DOSE: 2.0 - 3.0 Includes: PROPHYLAXIS forvenous thrombosis, systemic embolization; TREATMENT for venous thrombosis and/or pulmonary embolus.HIGH RISK: Target INR is 2.5-3.5 for patients with mechanical heart valves.CBC W/PLT COUNT & AUTO [id number] 18:07:00 Test Item Value Reference Range Comments WHITE BLOOD CELL COUNT (BEAKER) (test tmri=891) 4.7 K/ L 4.0-10.0 RED BLOOD CELL COUNT (BEAKER) (test yflg=655) 5.23 M/ L 4.20-5.80 HEMOGLOBIN (BEAKER) (test dyte=356) 15.6 GM/DL 13.0-16.8 HEMATOCRIT (BEAKER) (test dply=693) 47.4 % 40.0-50.0 MEAN CORPUSCULAR VOLUME (BEAKER) (test ylad=567) 90.5 fL 82.0-98.0 MEAN CORPUSCULAR HEMOGLOBIN (BEAKER) (test 29.9 pg 27.0-33.0 ktho=059) MEAN CORPUSCULAR HEMOGLOBIN CONC (BEAKER) (test 33.0 GM/DL 32.0-36.0 bufj=630) RED CELL DISTRIBUTION WIDTH (BEAKER) (test 12.5 % 10.3-14.2 yyio=984) PLATELET COUNT (BEAKER) (test sgno=732) 280 K/CU MM 150-430 MEAN PLATELET VOLUME (BEAKER) (test utcy=176) 6.6 fL 6.5-10.5 NUCLEATED RED BLOOD CELLS (BEAKER) (test 0 /100 WBC 0-0 cznh=692) NEUTROPHILS RELATIVE PERCENT (BEAKER) (test 62 % aohx=817) LYMPHOCYTES RELATIVE PERCENT (BEAKER) (test 29 % yhvm=031) MONOCYTES RELATIVE PERCENT (BEAKER) (test 5 % bnyq=409) EOSINOPHILS RELATIVE PERCENT (BEAKER) (test 3 % roum=150) BASOPHILS RELATIVE PERCENT (BEAKER) (test 1 % sybs=909) NEUTROPHILS ABSOLUTE COUNT (BEAKER) (test 2.90 K/ L 1.80-8.00 fiij=749) LYMPHOCYTES ABSOLUTE COUNT (BEAKER) (test 1.38 K/ L 1.48-4.50 avjx=107) MONOCYTES ABSOLUTE COUNT (BEAKER) (test 0.23 K/ L 0.00-1.30 azkq=817) EOSINOPHILS ABSOLUTE COUNT (BEAKER) (test 0.15 K/ L 0.00-0.50 muax=833) BASOPHILS ABSOLUTE COUNT (BEAKER) (test 0.05 K/ L 0.00-0.20 uxan=570) 0.00
--- OUTSIDE RECORDS SUMMARY | 2018-08-05 16:14 | XMS REPORT | Clinical Summary ---
:1985 Author Organization [facility] Address [address] [place] [address] Care Team Providers Name Role Phone Gerardo [...] Not on file Results Not on fileafter 08/04/2017
[2018-08-05] MEDS ORDERED: METHYLPREDNISOLONE 125 MG INJ ONE (16:54)
[2018-08-05] MEDS ORDERED: LEVALBUTEROL 1.25 MG/3 ML NEB ONE (16:54)
[2018-08-05] MEDS ORDERED: NA CHLORIDE 0.9% 1,000 ML ONE (16:55)
[2018-08-05 17:04] LABS: Absolute Lymphocytes (CBC) 1.6 K/uL (0.7-4.9); Absolute Monocytes 0.5 K/uL (0.1-1.3); Absolute Neutrophil 5.5 K/uL (1.8-8.0); Basophils % 0.6 % (0-1.3); Eosinophils % 0.3 % (0-4.4); Hematocrit 46.2 % (39.6-49.0); Lymphocytes % 20.4 % (15.3-44.8); MPV 8.1 fL (7.6-11.3); Monocytes % 7.1 % (3.3-12.3); RBC Red Blood Cell Count 5.29 M/uL (4.33-5.43)
[2018-08-05 17:21] LABS: ALT/SGPT 18 U/L (12-78); AST/SGOT 19 U/L (15-37); Albumin 4.4 g/dL (3.4-5.0); Alkaline Phosphatase 56 U/L (45-117); BUN Blood Urea Nitrogen 11 mg/dL (7-18); Bicarbonate 27 mmol/L (21-32); Bilirubin Total 0.7 mg/dL (0.2-1.0); Creatine Phosphokinase 282 U/L (39-308); Glucose Level 88 mg/dL (74-106); Potassium 3.7 mmol/L (3.5-5.1); Protein, Total 8.5 g/dL (6.4-8.2); Sodium Level 141 mmol/L (136-145); Troponin (Emerg Dept Use Only) < 0.02 ng/mL (0.0-0.045)
--- NOTE | 2018-08-05 18:34 | EDPHYS ---
Physician Documentation [facility] Name: Martinez Petty Age: 33 yrs Sex: Male : 1985 Arrival Date: 08/05/2018 Time: 16:05 Bed 8 Private MD: Jesse Almeida T ED Physician Lei Trejo HPI: 08/05 16:28 This 33 yrs old Black Male presents to ER via Ambulatory with complaints of Chest Pain, jmm Asthma Exacerbation. 16:28 Onset: The symptoms/episode began/occurred today. Modifying factors: The symptoms are jmm alleviated by nothing, the symptoms are aggravated by nothing. This is a 33 year old male with a history of asthma and htn =, presents to the ED with complaints of shortness of breath. Denies fever. Patient states having similar episodes with previous asthma exacerbations. Patient states he has been hospitalized in the past for asthma flares but never intubated. Patient denies fever, denies chills . Historical: - Allergies: 16:13 No Known Allergies; hj - Home Meds: 16:13 Enalapril Oral [Active]; Hydrochlorothiazide Oral [Active]; Metoprolol Tartrate Oral hj [Active]; - PMHx: 16:13 Hypertension; hj - PSHx: 16:13 None; hj ROS: 16:28 Constitutional: Negative for fever, chills, and weight loss. [facility] 16:28 Cardiovascular: Positive for chest pain, with cough. 16:28 Respiratory: Positive for shortness of breath, wheezing. 16:28 All other systems are negative. Exam: 16:28 Head/Face: atraumatic. Chest/axilla: Normal chest wall appearance and motion. jmm 16:28 Abdomen/GI: Non distended, soft Back: Normal ROM Skin: General appearance color normal MS/ Extremity: Moves all extremities, no obvious deformities appreciated, no edema noted to the lower extremities Neuro: Awake and alert, normal gait Psych: Behavior is normal, Mood is normal, Patient is cooperative and pleasant 16:28 Constitutional: The patient appears alert, awake, anxious, uncomfortable. 16:28 Cardiovascular: Rate: tachycardic, Rhythm: regular. 16:28 Respiratory: the patient does not display signs of respiratory distress, Respirations: normal, Breath sounds: wheezing: that is mild, is scattered. 17:37 ECG was reviewed by the Attending Physician. [facility] Vital Signs: 16:13 BP 139 / 97; Pulse 128; Resp 18; Temp 97.8(O); Pulse Ox 97% on R/A; Weight 113.4 kg; hj Height 6 ft. 3 in. (190.50 cm); Pain 10/10; 16:57 BP 155 / 99; Pulse 113; Resp 16; Pulse Ox 100% on Nebulizer Mask; hb 18:20 BP 154 / 92; Pulse 105; Resp 18; Pulse Ox 99% on R/A; aj1 16:13 Body Mass Index 31.25 (113.40 kg, 190.50 cm) MDM: 16:28 Patient medically screened. [facility] 18:32 Data reviewed: vital signs, nurses notes. Counseling: I had a detailed discussion with [facility] the patient and/or guardian regarding: the historical points, exam findings, and any diagnostic results supporting the discharge/admit diagnosis, lab results, the need for outpatient follow up, to return to the emergency department if symptoms worsen or persist or if there are any questions or concerns that arise at home. ED course: Lungs CTA on repeat auscultation. Patient states that he feels much better. patient prescribed oral steriods and the patient is given strict return precautions. patient understood and agrees with the plan of care. . 04 16:29 Order name: Flu; Complete Time: 17:30 [facility] 08/05 16:42 Order name: Troponin (emerg Dept Use Only); Complete Time: 17:30 [facility] 08/05 16:42 Order name: CPK; Complete Time: 17:30 [facility] 08/05 16:42 Order name: CMP; Complete Time: 17:30 [facility] 08/05 16:42 Order name: CBC with Diff; Complete Time: 17:12 [facility] 08/05 16:15 Order name: EKG; Complete Time: 16:15 EC:37 Rate is 117 beats/min. Rhythm is regular. [place] interval is normal. QRS interval is [facility] normal. QT interval is normal. No Q waves. T waves are Peaked in leads aVL, V2. No ST changes noted. Administered Medications: 16:55 Drug: NS 0.9% 1000 ml Route: IV; Rate: 1 bolus; Site: right antecubital; hb 16:55 Drug: SOLU-Medrol 125 mg Route: IVP; Site: right antecubital; hb 18:42 Follow up: Response: No adverse reaction aj1 16:55 Drug: Xopenex (3) 1.25 mg Route: Inhalation; hb 18:42 Follow up: Response: No adverse reaction aj1 Disposition: 08/05/18 18:33 Discharged to Home. Impression: Unspecified asthma with (acute) exacerbation. - Condition is Stable. - Discharge Instructions: Asthma, Acute Bronchospasm. - Prescriptions for Prednisone 20 mg Oral Tablet - take 3 tablet by ORAL route once daily for 5 days; 15 tablet. - Medication Reconciliation Form, Thank You Letter, Antibiotic Education, Prescription Opioid Use, Work release form form. - Follow up: Jesse lAmeida MD; When: 2 - 3 days; Reason: Recheck today's complaints, Continuance of care, Re-evaluation by your physician. Addendum: 08/08/2018 07:20 Co-signature as Attending Physician, Lei Trejo MD I agree with the assessment and k dr plan of care. Signatures: Dispatcher [employer] EDMS Lei Treoj MD MD [facility] Wally Sherman PA PA [facility] Quentin Coon RN RN Rosalina Cuevas RN RN hb Johnson, Angela RN aj1 Corrections: (The following items were deleted from the chart) 08/05 18:28 17:37 Rate is 117 beats/min. Rhythm is regular. QRS [place] is Normal. [place] interval is jmm normal. QRS interval is normal. QT interval is normal. No Q waves. T waves are Peaked in leads aVL, V2. No ST changes noted. [facility] 18:55 18:33 08/05/2018 18:33 Discharged to Home. Impression: Unspecified asthma with (acute) hb exacerbation. Condition is Stable. Forms are Medication Reconciliation Form, Thank You Letter, Antibiotic Education, Prescription Opioid Use. Follow up: Jesse Almeida; When: 2 - 3 days; Reason: Recheck today's complaints, Continuance of care, Re-evaluation by your physician. [facility]
--- NOTE | 2018-08-05 18:34 | ER ---
Nurse's Notes [facility] Name: Martinez Petty Age: 33 yrs Sex: Male : 1985 Arrival Date: 08/05/2018 Time: 16:05 Bed 8 Private MD: Jesse Almeida T Diagnosis: Unspecified asthma with (acute) exacerbation Presentation: 08/05 16:12 Presenting complaint: Patient states: i started SOB and chest pain that started today. hj Transition of care: patient was not received from another setting of care. Onset of symptoms was August 05, 2018. Risk Assessment: Do you want to hurt yourself or someone else? Patient reports no desire to harm self or others. Initial Sepsis Screen: Does the patient meet any 2 criteria? No. Patient's initial sepsis screen is negative. Does the patient have a suspected source of infection? No. Patient's initial sepsis screen is negative. Care prior to arrival: None. 16:12 Method Of Arrival: Ambulatory 16:12 Acuity: YESSICA 3 hj Historical: - Allergies: 16:13 No Known Allergies; hj - Home Meds: 16:13 Enalapril Oral [Active]; Hydrochlorothiazide Oral [Active]; Metoprolol Tartrate Oral hj [Active]; - PMHx: 16:13 Hypertension; hj - PSHx: 16:13 None; hj Screenin:26 Abuse screen: Denies threats or abuse. Denies injuries from another. Nutritional aj1 screening: No deficits noted. Tuberculosis screening: No symptoms or risk factors identified. Assessment: 16:26 General: Appears in no apparent distress. uncomfortable, Behavior is calm, cooperative, aj1 appropriate for age. Pain: Complains of pain in mid-sternal area Pain does not radiate. Pain currently is 8 out of 10 on a pain scale. Pain: Pain began suddenly. Neuro: Neuro: Level of Consciousness is awake, alert, obeys commands, Oriented to person, place, time, situation, Speech is normal, Facial symmetry appears normal. Cardiovascular: Reports chest pain, shortness of breath, Heart tones S1 S2 present Patient's skin is warm and dry. Rhythm is sinus tachycardia. Respiratory: Reports shortness of breath at rest Airway is patent Respiratory effort is even, unlabored, Respiratory pattern is regular, symmetrical, Breath sounds are clear bilaterally. GI: No signs and/or symptoms were reported involving the gastrointestinal system. : No signs and/or symptoms were reported regarding the genitourinary system. EENT: No signs and/or symptoms were reported regarding the EENT system. Derm: No signs and/or symptoms reported regarding the dermatologic system. Skin is pink, warm \T\ dry. normal. 16:57 Reassessment: Patient appears in no apparent distress at this time. No changes from hb previously documented assessment. Patient and/or family updated on plan of care and expected duration. Pain level reassessed. Patient is alert, oriented x 3, equal unlabored respirations, skin warm/dry/pink. 18:00 Reassessment: Patient appears in no apparent distress at this time. No changes from aj1 previously documented assessment. Patient and/or family updated on plan of care and expected duration. Pain level reassessed. Patient is alert, oriented x 3, equal unlabored respirations, skin warm/dry/pink. Vital Signs: 16:13 BP 139 / 97; Pulse 128; Resp 18; Temp 97.8(O); Pulse Ox 97% on R/A; Weight 113.4 kg; hj Height 6 ft. 3 in. (190.50 cm); Pain 10/10; 16:57 BP 155 / 99; Pulse 113; Resp 16; Pulse Ox 100% on Nebulizer Mask; hb 18:20 BP 154 / 92; Pulse 105; Resp 18; Pulse Ox 99% on R/A; aj1 16:13 Body Mass Index 31.25 (113.40 kg, 190.50 cm) ED Course: 16:05 Patient arrived in ED. as 16:05 Jesse Almeida MD is Private Physician. as 16:13 Triage completed. hj 16:15 Arm band placed on right wrist. 16:20 Wally Sherman PA is PHCP. [facility] 16:20 Lei Trejo MD is Attending Physician. [facility] 16:22 Graciela Dumont, CARMENCITA is Primary Nurse. aj1 16:26 Patient has correct armband on for positive identification. quilting supervisor on. Pulse aj1 ox on. NIBP on. 16:26 No provider procedures requiring assistance completed. Patient maintains SpO2 aj1 saturation greater than 95% on room air. 16:32 EKG done, by wireless field technician. reviewed by Wally HARPER. sm3 16:52 Initial lab(s) drawn, by ks, sent to lab. Inserted saline lock: 20 gauge in left em1 antecubital area, using aseptic technique. Blood collected. Missed attempt(s): 20 gauge in left hand. Bleeding controlled, band aid applied, catheter tip intact. 18:33 Jesse Almeida MD is Referral Physician. [facility] Administered Medications: 16:55 Drug: NS 0.9% 1000 ml Route: IV; Rate: 1 bolus; Site: right antecubital; hb 16:55 Drug: SOLU-Medrol 125 mg Route: IVP; Site: right antecubital; hb 18:42 Follow up: Response: No adverse reaction aj1 16:55 Drug: Xopenex (3) 1.25 mg Route: Inhalation; hb 18:42 Follow up: Response: No adverse reaction aj Outcome: 18:33 Discharge ordered by MD. trivedi 18:55 Patient left the ED. Signatures: Graciela Dumont RN RN aj1 Wally Sherman PA [facility] Avani Woods Eric 1 Quentin Coon RN RN Rosalina Cuevas RN RN Marybel Echols sm3 Corrections: (The following items were deleted from the chart) 16:15 16:13 113.4 kg; Height 6 ft. 3 in.; BMI: 31.2; Pain 10/10; cheryl luna
--- NOTE | 2018-08-09 11:27 | EKG ---
Test Date: 2018-08-05 Test Time: 16:18:58 Mortician Investigator: POOL MEASUREMENT RESULTS: Intervals: Rate: 117 CT: 146 QRSD: 76 QT: 310 QTc: 432 [place]: P: 55 CT: 146 QRS: 111 T: -9 INTERPRETIVE STATEMENTS: Sinus tachycardia Left posterior fascicular block T wave abnormality, consider inferior ischemia Abnormal ECG Compared to ECG 07/13/2018 15:58:40 Left posterior fascicular block now present T-wave abnormality now present Possible ischemia now present Sinus rhythm no longer present Electronically Signed On 08-05-18 18:21:15 CDT by Demario Srinivasan
== END 2018-08-05 18:55 | disposition home or self-care (01) ==
LOC: ER 16:03
DX: J45.901 Unspecified asthma with (acute) exacerbation (principal); I10 Essential (primary) hypertension
CPT/HCPCS: 36415; 80053; 82550; 84484; 85025; 87804; 93005; 96374; 99285; J2930; J7030